=== PATIENT | female | born 1985 | race Caucasian/White ===

== ENCOUNTER 2021-02-03 17:11 | Emergency (ER) | payer OTHER ==
[~2021-02-03] VITALS: Ht 160 cm; Wt 59.0 kg
--- NOTE | 2021-02-03 17:14 | NUR ---
BIBA BLS TO ER BED 12
[2021-02-03 17:25] VITALS: BP 114/66
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
--- NOTE | 2021-02-03 18:32 | NUR ---
PT PROVIDED WITH WARM BLANKET AND ICE PACKS BEDSIDE
--- NOTE | 2021-02-03 19:10 | NUR ---
ASSUMED CARE OF PATIENT AT THIS TIME.
--- NOTE | 2021-02-03 19:13 | NUR ---
Pt report given to PACO BERRY. Transfer of care at this time.
[2021-02-03] MEDS ORDERED: ACETAMINOPHEN 325 MG TAB PO ONE (19:15)
[2021-02-03] MEDS ORDERED: NACL 0.9% 1,000 ML IV ONE (21:20)
[2021-02-03] MEDS ORDERED: CYCLOBENZAPRINE 10 MG TAB PO ONE (21:20)
[2021-02-03] MEDS ORDERED: ALBUTEROL HFA MDI 90 MCG/ACTUATION 8 GM INH ONE (21:20)
[2021-02-03] MEDS ORDERED: MORPHINE SULFATE 2 MG/ML SYR IVP ONE (21:20)
--- NOTE | 2021-02-03 21:28 | NUR ---
PENDING EKG, REQUESTING FEMALE NURSE
[2021-02-03 21:44] LABS: BASOPHILS % (AUTO) 0.5 % (0.0-2.0); EOSINOPHILS % (AUTO) 0.6 % (0.0-4.0); HEMATOCRIT 35.7 % (36-48); HEMOGLOBIN 11.4 g/dL (12.0-16.0); LYMPHOCYTES # (AUTO) 1.4 K/uL (2.5-16.5); LYMPHOCYTES % (AUTO) 17.6 % (20.5-51.1); MEAN CORPUSCULAR HEMOGLOBIN 24 pg (27-31); MEAN CORPUSCULAR HGB CONC 32 g/dL (33-37); MEAN CORPUSCULAR VOLUME 73.8 fL (80-94); MONOCYTES # (AUTO) 0.4 K/uL (0.8-1.0); MONOCYTES % (AUTO) 5.2 % (1.7-9.3); NEUTROPHILS # (AUTO) 5.8 K/uL (1.8-7.7); NEUTROPHILS % (AUTO) 76.1 % (42.2-75.2); PLATELET COUNT (AUTO) 80 K/uL (140-450); RED BLOOD CELL COUNT(AUTO) 4.83 MIL/uL (4.20-5.40); WHITE BLOOD COUNT (AUTO) 7.7 K/uL (4.8-10.8)
[2021-02-03 21:53] LABS: ALBUMIN 4.2 g/dL (3.4-5.0); ANION GAP 13.1 (8-16); CARBON DIOXIDE 28.5 mmol/L (21-32); CREATININE 0.6 mg/dL (0.6-1.3); POTASSIUM 3.6 mmol/L (3.5-5.1); TOTAL BILIRUBIN 0.6 mg/dL (0.0-1.0)
[2021-02-03] MEDS ORDERED: LID5T TP (22:51)
[2021-02-03] MEDS ORDERED: CYCL-711 PO (22:52)
[2021-02-03] MEDS ORDERED: ALBU0.0912 INH (22:53)
--- NOTE | 2021-02-03 23:26 | NUR ---
[facility] CONTACTED AT THIS TIME. ER MD AT BEDSIDE FOR DISCHARGE TEACHING. ADVISED TO FOLLOW UP WITH PCP AND NO FURTHER QUESTIONS FOLLOWING DISCHARGE TEACHING.
[2021-02-03 23:27] VITALS: BP 102/64
[2021-02-04] MEDS ORDERED: LIDOCAINE 5% 1 EA PATCH TP SCH (09:00)
== END 2021-02-03 23:26 | disposition home or self-care (01) ==
LOC: MED 17:11
DX: S16.1XXA Strain of muscle, fascia and tendon at neck level, initial encounter (principal); F41.9 Anxiety disorder, unspecified; Z88.8 Allergy status to other drugs, medicaments and biological substances; V98.8XXA Other specified transport accidents, initial encounter; Y93.89 Activity, other specified; Y92.89 Other specified places as the place of occurrence of the external cause; Y99.8 Other external cause status
CPT/HCPCS: 36415; 70450; 71046; 72125; 74150; 80053; 84484; 84703; 85025; 93005; 94664; 96360; 99285; J7030; J2270